=== PATIENT | female | born 1950 | race Caucasian/White ===

== ENCOUNTER 2016-10-21 12:57 | Inpatient (IN) | payer MEDICARE, MEDICAID ==
[~2016-10-21] VITALS: Ht 160 cm; Wt 72.8 kg
[2016-10-21 14:21] LABS: Hematocrit 45.1 % (36.0-46.0); Hemoglobin 15.6 g/dL (12.2-16.2); Mean Corpuscular Hemoglobin 29.2 pg (28.0-32.0); Mean Corpuscular Hgb Conc. 34.7 g/dL (32.0-36.0); Mean Corpuscular Volume 84.2 fL (80.0-100.0); Mean Platelet Volume 10.1 fL (7.4-10.4); Platelet Count (auto) 175 10^3/uL (140-450); Red Cell Distribution Width 13.9 % (11.6-16.0); SUSPECT VIEW TRANSMISSION; White Blood Cell 19.2 10^3/uL (4.4-10.8)
[2016-10-21 14:33] LABS: Metamyelocytes % 0; Myelocytes % 0; Promyelocytes % 0; Reactive Lymphocytes 0
[2016-10-21 14:54] LABS: Platelet Estimate Adequate
[2016-10-21 14:59] LABS: Albumin 3.5 g/dL (3.4-5.0); Alkaline Phosphatase 76 U/L (45-117); Anion Gap 16 (5-15); Aspartate Aminotransferase 28 U/L (15-37); BUN/Creatinine Ratio 19.4; Bilirubin, Total 1.8 mg/dL (0.2-1.0); Blood Urea Nitrogen 18 mg/dL (7-18); Calcium 9.3 mg/dL (8.5-10.1); Carbon Dioxide 25 mmol/L (21-32); Chloride 101 mmol/L (98-107); GFR African American 78 mL/min; GFR Non-African American 64 mL/min; Glucose 172 mg/dL (74-106); Sodium 142 mmol/L (136-145); Total Protein 8.2 g/dL (6.4-8.2)
[2016-10-21 15:02] LABS: Potassium 2.8 mmol/L (3.5-5.1)
[2016-10-21] MEDS ORDERED: POTASSIUM CHL 20 Meq TABLET PO ONE (16:00)
[2016-10-21] MEDS ORDERED: POTASSIUM CHL 20MEQ/100ML 100 ML IV ONE (16:00)
[2016-10-21] MEDS ORDERED: cefTRIAXone 1GM/50ML D5W 50 ML IV ONE (17:15)
[2016-10-21] MEDS ORDERED: ACETAMINOPHEN 500 MG TAB PO PRN (17:15)
[2016-10-21] MEDS: SODIUM CHLORIDE 0.9% 1,000 ML IV SCH (17:15)
[2016-10-21] MEDS ORDERED: AZITHROMYCIN 500MG/D5W 250ML 250 ML IV ONE (18:15)
[2016-10-21 21:58] VITALS: BP 141/83
[2016-10-22] VITALS (7 sets, daily range): BP systolic 113–146; BP diastolic 73–91
[2016-10-22 06:06] LABS: Hematocrit 43.1 % (36.0-46.0); Hemoglobin 14.9 g/dL (12.2-16.2); Mean Corpuscular Hgb Conc. 34.6 g/dL (32.0-36.0); Mean Corpuscular Volume 83.9 fL (80.0-100.0); Platelet Count (auto) 151 10^3/uL (140-450); Red Cell Distribution Width 13.5 % (11.6-16.0); SUSPECT VIEW TRANSMISSION; White Blood Cell 18.6 10^3/uL (4.4-10.8)
[2016-10-22 06:22] LABS: Metamyelocytes % 0; Myelocytes % 0; Promyelocytes % 0; Reactive Lymphocytes 0
[2016-10-22] MEDS: SODIUM CHLORIDE 0.9% 1,000 ML IV SCH ×2 (06:35→19:55)
[2016-10-22 06:49] LABS: BUN/Creatinine Ratio 20.5; Calcium 8.9 mg/dL (8.5-10.1); Magnesium 2.4 mg/dL (1.6-2.6)
[2016-10-22 06:52] LABS: Hypersegmented Neutrophils Present; Platelet Estimate Adequate; RBC Morphology Normal
[2016-10-22] MEDS: cefTRIAXone 1GM/50ML D5W 50 ML IV SCH (08:51)
[2016-10-22] MEDS ORDERED: POTASSIUM CHL 20 Meq TABLET PO ONE (09:45)
[2016-10-22] MEDS ORDERED: DEXTROSE (50%) 50ML SYRG IV PRN (09:45)
[2016-10-22] MEDS ORDERED: AZITHROMYCIN 500MG/D5W 250ML 250 ML IV SCH (10:00)
[2016-10-22] MEDS ORDERED: POTASSIUM CHL 10% (20 MEQ/15ML) ORAL SOLN PO ONE (11:15)
[2016-10-22] MEDS: ACCU-CHEK COMFORT CURVE STRIP VI SCH ×3 (11:42→22:00)
[2016-10-22 11:47] LABS: Urine Bilirubin Negative (Negative); Urine Color Yellow (Yellow); Urine Glucose Normal (Normal); Urine Ketone Negative (Negative); Urine Mucus FEW (None Seen); Urine Nitrite Negative (Negative); Urine RBC 152 /hpf (0 - 4); Urine Urobilinogen Normal (Negative); Urine pH 5.5 (5.0-8.0)
[2016-10-22 11:52] LABS: Urine Blood 3+ /uL (Negative)
[2016-10-22] MEDS: InsuLIN REG 1unit/0.01ml Soln (100units/ml) SC SCH ×3 (11:57→22:00)
[2016-10-22] MEDS ORDERED: MEMA1CAP2 PO (19:53)
[2016-10-22] MEDS ORDERED: HYDR25TA4 PO (19:53)
[2016-10-22] MEDS ORDERED: CLON2TAB3 PO (19:53)
[2016-10-22] MEDS ORDERED: QUET50TA PO (19:53)
[2016-10-23 05:01] VITALS: BP 115/74
[2016-10-23 05:34] LABS: Basophils # (auto) 0.1 uL; Basophils % (auto) 0.5 % (0.0-2.0); Eosinophils # (auto) 0 uL; Eosinophils % (auto) 0.1 % (0.0-7.0); Lymphocytes # (auto) 1.5 uL; Lymphocytes % (auto) 10.1 % (10.0-50.0); Mean Corpuscular Hemoglobin 28.9 pg (28.0-32.0); Mean Corpuscular Hgb Conc. 34.2 g/dL (32.0-36.0); Mean Corpuscular Volume 84.5 fL (80.0-100.0); Mean Platelet Volume 10.8 fL (7.4-10.4); Monocytes # (auto) 1.3 uL; Monocytes % (auto) 8.9 % (0.0-12.0); Neutrophils # (auto) 11.8 uL; Neutrophils % (auto) 80.4 % (37.0-80.0); Platelet Count (auto) 160 10^3/uL (140-450); Red Cell Distribution Width 13.9 % (11.6-16.0); White Blood Cell 14.7 10^3/uL (4.4-10.8)
[2016-10-23] MEDS: InsuLIN REG 1unit/0.01ml Soln (100units/ml) SC SCH (05:46)
[2016-10-23] MEDS: ACCU-CHEK COMFORT CURVE STRIP VI SCH (05:47)
[2016-10-23 05:48] LABS: BUN/Creatinine Ratio 22.1; Calcium 8.3 mg/dL (8.5-10.1); Potassium 3.1 mmol/L (3.5-5.1)
[2016-10-23 07:40] VITALS: BP 121/76
[2016-10-23 09:00] VITALS: BP 121/76
[2016-10-23] MEDS: cefTRIAXone 1GM/50ML D5W 50 ML IV SCH (09:34)
[2016-10-23] MEDS ORDERED: POTASSIUM CHL 20 Meq TABLET PO ONE (10:00)
[2016-10-23 13:00] VITALS: BP 113/74
[2016-10-23] MEDS ORDERED: ONDANSETRON HCL 4 MG/2 ML VIAL IV PRN (13:00)
[2016-10-23 17:00] VITALS: BP_SYST 119; BP_SYST 154; BP_DIAS 70; BP_DIAS 95
[2016-10-23] MEDS: QUEtiapine FUMARATE 25 MG TAB PO SCH (21:29)
[2016-10-23 21:42] VITALS: BP 143/81
[2016-10-24 04:46] VITALS: BP 147/92
[2016-10-24 05:59] LABS: Basophils # (auto) 0 uL; Basophils % (auto) 0.4 % (0.0-2.0); Eosinophils # (auto) 0.1 uL; Eosinophils % (auto) 0.6 % (0.0-7.0); Hematocrit 39.3 % (36.0-46.0); Hemoglobin 13.4 g/dL (12.2-16.2); Lymphocytes # (auto) 1.2 uL; Lymphocytes % (auto) 13.5 % (10.0-50.0); Mean Corpuscular Hemoglobin 28.9 pg (28.0-32.0); Mean Platelet Volume 10.4 fL (7.4-10.4); Neutrophils # (auto) 6.7 uL; Neutrophils % (auto) 74.5 % (37.0-80.0); Platelet Count (auto) 146 10^3/uL (140-450); Red Cell Distribution Width 13.8 % (11.6-16.0); White Blood Cell 9.1 10^3/uL (4.4-10.8)
[2016-10-24 06:18] LABS: Calcium 8.2 mg/dL (8.5-10.1); Potassium 3.3 mmol/L (3.5-5.1)
[2016-10-24 06:20] LABS: BUN/Creatinine Ratio 17.3
[2016-10-24 08:00] VITALS: BP 143/88
[2016-10-24 09:00] VITALS: BP 143/88
[2016-10-24] MEDS ORDERED: POTASSIUM CHL 20 Meq TABLET PO ONE (09:00)
[2016-10-24] MEDS: MEMANTINE HCL 5 MG TAB PO SCH (10:23)
[2016-10-24] MEDS: cefTRIAXone 1GM/50ML D5W 50 ML IV SCH (10:24)
[2016-10-24 13:00] VITALS: BP 141/83
[2016-10-24 17:00] VITALS: BP 132/78
[2016-10-24 22:00] VITALS: BP 143/92
[2016-10-24] MEDS: QUEtiapine FUMARATE 25 MG TAB PO SCH (22:20)
[2016-10-25 04:49] VITALS: BP 144/72
[2016-10-25 06:02] LABS: Basophils # (auto) 0.1 uL; Basophils % (auto) 0.6 % (0.0-2.0); Eosinophils # (auto) 0.1 uL; Hematocrit 39.2 % (36.0-46.0); Hemoglobin 13.2 g/dL (12.2-16.2); Lymphocytes # (auto) 1.7 uL; Lymphocytes % (auto) 19.2 % (10.0-50.0); Mean Corpuscular Hemoglobin 28.5 pg (28.0-32.0); Mean Corpuscular Hgb Conc. 33.8 g/dL (32.0-36.0); Mean Corpuscular Volume 84.5 fL (80.0-100.0); Mean Platelet Volume 9.9 fL (7.4-10.4); Monocytes # (auto) 1.2 uL; Neutrophils # (auto) 5.9 uL; Neutrophils % (auto) 66.2 % (37.0-80.0); Platelet Count (auto) 170 10^3/uL (140-450); Red Cell Distribution Width 13.9 % (11.6-16.0); White Blood Cell 8.9 10^3/uL (4.4-10.8)
[2016-10-25 06:20] LABS: BUN/Creatinine Ratio 16.7; Calcium 8.2 mg/dL (8.5-10.1); Potassium 3.5 mmol/L (3.5-5.1)
[2016-10-25 08:00] VITALS: BP 114/82
[2016-10-25] MEDS: MEMANTINE HCL 5 MG TAB PO SCH (09:16)
[2016-10-25] MEDS: cefTRIAXone 1GM/50ML D5W 50 ML IV SCH (09:16)
[2016-10-25 12:00] VITALS: BP 132/77
== END 2016-10-25 12:10 | disposition home or self-care (01) | DRG 871 ==
LOC: ER 12:57 → EDBD 12:57 → EDSEX 12:57 → OVERFLOW 12:58 → CENTRAL 18:46
PROVIDERS: ADMIT Internal Medicine; ATTEND Family Medicine
DX: A41.9 Sepsis, unspecified organism (principal); J18.9 Pneumonia, unspecified organism; N39.0 Urinary tract infection, site not specified; E87.6 Hypokalemia; F02.80 Dementia in other diseases classified elsewhere, unspecified severity, without behavioral disturbance, psychotic disturbance, mood disturbance, and anxiety; G30.9 Alzheimer's disease, unspecified; G40.909 Epilepsy, unspecified, not intractable, without status epilepticus; I10 Essential (primary) hypertension; F32.9 Major depressive disorder, single episode, unspecified; M19.90 Unspecified osteoarthritis, unspecified site; Z90.710 Acquired absence of both cervix and uterus; Z79.899 Other long term (current) drug therapy; Z88.5 Allergy status to narcotic agent
CPT/HCPCS: 36415; 70450; 71010; 71020; 80048; 80053; 81001; 82962; 83036; 83735; 84484; 85007; 85025; 85027; 85379; 87040; 87077; 87081; 87086; 87186; 94761; 96374; J0696; J1815; J2405; J3480

== ENCOUNTER 2019-05-29 08:19 | Inpatient (IN) | payer MEDICARE, MEDICAID ==
[~2019-05-29] VITALS: Ht 162.6 cm; Wt 75.5 kg
[~2019-05-29 08:19] MED LIST: CLON-707 PO; HYDR25TA4 PO; MEMA1CAP2 PO; QUET50TA PO
[2019-05-29 09:13] LABS: Basophils # (auto) 0.1 uL; Basophils % (auto) 0.4 % (0.0-2.0); Eosinophils # (auto) 0 uL; Hematocrit 44.7 % (36.0-46.0); Hemoglobin 15.4 g/dL (12.2-16.2); Lymphocytes # (auto) 1.1 uL; Lymphocytes % (auto) 6.3 % (10.0-50.0); Mean Corpuscular Hgb Conc. 34.4 g/dL (32.0-36.0); Mean Corpuscular Volume 84.2 fL (80.0-100.0); Monocytes # (auto) 1.6 uL; Neutrophils # (auto) 15.1 uL; Neutrophils % (auto) 84.3 % (37.0-80.0); Nucleated Red Blood Cells % 0.1 %; Platelet Count (auto) 153 10^3/uL (140-450); Red Cell Distribution Width 14.3 % (11.8-14.3); White Blood Cell 17.9 10^3/uL (4.4-10.8)
[2019-05-29 09:41] LABS: Alanine Aminotransferase 36 U/L (13-56); Albumin 3.5 g/dL (3.4-5.0); Alkaline Phosphatase 61 U/L (45-117); Anion Gap 7 (5-15); Aspartate Aminotransferase 21 U/L (15-37); BUN/Creatinine Ratio 20.6; Bilirubin, Total 1.1 mg/dL (0.2-1.0); Blood Urea Nitrogen 21 mg/dL (7-18); Calcium 9.2 mg/dL (8.5-10.1); Carbon Dioxide 28 mmol/L (21-32); Chloride 108 mmol/L (98-107); GFR African American 70 mL/min; GFR Non-African American 57 mL/min; Glucose 211 mg/dL (74-106); Sodium 143 mmol/L (136-145); Total Protein 7.8 g/dL (6.4-8.2)
[2019-05-29] MEDS ORDERED: IPRATROPIUM BROM 0.5 MG/2.5ML INH SOL NEB ONE (09:45)
[2019-05-29] MEDS ORDERED: ALBUTEROL SULF 2.5 MG/0.5ML(0.5%) NEB SOLN NEB ONE (09:45)
[2019-05-29] MEDS ORDERED: PIPERACILLIN-TAZOB 3.375GM 100 ML IV ONE (09:45)
[2019-05-29] MEDS ORDERED: SODIUM CHLORIDE 0.9% 2,000 ML IV ONE (09:45)
[2019-05-29] MEDS ORDERED: POTASSIUM EFFERVESENT TAB 25 MEQ PO ONE (10:00)
[2019-05-29 10:09] LABS: Urine Bacteria MANY /hpf (None Seen); Urine Blood 2+ /uL (Negative); Urine Budding Yeast OCCASIONAL /hpf (None Seen); Urine Mucus FEW (None Seen); Urine Specific Gravity 1.018 (1.001-1.035); Urine WBC 407 /hpf (0 - 5); Urine WBC Clumps PRESENT /hpf (None Seen)
[2019-05-29] MEDS ORDERED: ALBUTEROL SULF 2.5 MG/0.5ML(0.5%) NEB SOLN NEB PRN (11:30)
[2019-05-29] MEDS ORDERED: NITROGLYCERIN 0.4 MG SL TAB SL PRN (11:30)
[2019-05-29] MEDS ORDERED: MORPHINE SULF INJ 2 MG/ML SYRINGE 1ML IV PRN ×2 (11:30)
[2019-05-29] MEDS ORDERED: IPRATROPIUM BROM 0.5 MG/2.5ML INH SOL NEB PRN (11:30)
[2019-05-29] MEDS ORDERED: HYDROcodone-ACET 5/325MG TAB PO PRN (11:30)
[2019-05-29] MEDS ORDERED: clonazePAM 0.5 MG TAB PO PRN (12:15)
[2019-05-29 12:16] VITALS: BP 111/69
--- NOTE | 2019-05-29 12:35 | NUR ---
Respiratory note: PT IS AWAKE, ALERT AND RESPONSIVE. FOUND PT ON 2 LPM NC. B/S WERE COARSE AND EXPIRATORY WHEEZE. HR 110, RR 20, SP02 96%. PT RECEIVED INITIAL ONE TIME TREATMENT IN ER AND BS IMPROVED AND PT FELT RELIEF. PT IS IN NO DISTRESS ATHIS TIME AND NO COMPLAINT OF SOB. EXPLAINED TO PT IF BECOMES SOB TO PUSH CALL LIGHT AND RT WILL BE PAGED.
[2019-05-29] MEDS: ACETAMINOPHEN 500 MG TAB PO PRN (12:46)
[2019-05-29 13:00] VITALS: BP 93/48
--- NOTE | 2019-05-29 13:00 | NUR ---
[facility] after SBAR received. Patient oriented to Kelli Cardozo, RN primary RN, unit, room, bed, and unit policies regarding patient care and visiting hours. Patient now on continuous telemetry monitoring, tele box # [id number] and telemetry reading on arrival to unit is sinus tach 110. Patient placed on bedside oxygen, weighed by bedscale and encouraged to call if they need something. All questions and concerns addressed, patient verbalized understanding. Note:
[2019-05-29 13:23] LABS: Cholesterol 140 mg/dL (< 200); LDL Cholesterol 80 mg/dL (< 100); Triglycerides 110 mg/dL (< 150)
[2019-05-29 13:26] LABS: HDL Cholesterol 51 mg/dL (40-59)
[2019-05-29] MEDS ORDERED: AMLO5TAB15 PO (14:52)
[2019-05-29] MEDS ORDERED: CYAN1TAB14 PO (14:52)
[2019-05-29] MEDS ORDERED: MELA3TAB27 PO (14:52)
[2019-05-29] MEDS ORDERED: FENO1TAB42 PO (14:52)
[2019-05-29] MEDS ORDERED: MULTCAP45 PO (14:52)
[2019-05-29] MEDS: SODIUM CHLORIDE 0.9% 1,000 ML IV SCH ×2 (14:54→19:20)
[2019-05-29] MEDS: cefTRIAXone 1GM/50ML D5W 50 ML IV SCH (14:54)
[2019-05-29 16:43] VITALS: BP 95/53
--- NOTE | 2019-05-29 18:00 | NUR ---
Patient asking to be helped to the bathroom. Patient is unsteady on her feet. BSC at bedside for patient safety. Call light in reach. Will continue to monitor.
[2019-05-29] MEDS: QUEtiapine FUMARATE 25 MG TAB PO SCH (18:40)
--- NOTE | 2019-05-29 19:30 | NUR ---
Opening Shift Note Assumed care of patient. Patient is awake, alert and oriented. No S/S of distress/SOB or pain. Mims catheter intact, patent, draining to gravity with no s/s of pain or discomfort. Bedside commode in place and bed alarm on. Patient Instructed on POC and to call for assist PRN, will continue to monitor for changes. Bed locked in lowest position and bed rails up x2. Call light within reach.
--- NOTE | 2019-05-29 20:30 | NUR ---
Respiratory note: PT ASSESSED FOR PRN MED NEB TX. HR 89, RR 16, SPO2 90% ON R/A. NO SIGNS OF ANY RESPIRATORY DISTRESS NOTED. ADVISED PT TO CALL IF TX IS NEEDED. RT NSME AND PAGER NUMBER WRITTEN ON BOARD.
[2019-05-29 22:00] VITALS: BP 100/64
--- NOTE | 2019-05-29 22:00 | NUR ---
Patient found on room air and O2 saturation at 90%. Assessed patient. Patient has no s/s of respiratory distress. Applied O2 at 3lpm. O2 saturation petar to 92%. Patient answered "yes" when asked if she use to be a previous smoker. Addendum: 05/29/19 at 2237 by TAMIKA SAINZ RN RN Will continue to monitor patient for any changes
--- NOTE | 2019-05-30 01:10 | NUR ---
Patient removed tele monitor and leads. Patient stated "I took it off because Im leaving in the morning anyway". Educated patient on risks of not having it on and benefits to keeping it on. Patient verbalized understanding and agreed to reapply the leads and tele monitor.
[2019-05-30] MEDS: SODIUM CHLORIDE 0.9% 1,000 ML IV SCH ×3 (02:54→19:20)
[2019-05-30 05:09] VITALS: BP 106/68
--- NOTE | 2019-05-30 05:10 | NUR ---
Paged hospitalist for positive blood culture
--- NOTE | 2019-05-30 05:22 | NUR ---
Hospitalist called back. Notified him of the positive results for the blood culture. Instructed to wait on the final report before any action could be taken. No new orders given. Will continue to monitor patient for changes
[2019-05-30 05:59] LABS: Basophils # (auto) 0.1 uL; Basophils % (auto) 0.5 % (0.0-2.0); Eosinophils # (auto) 0.1 uL; Eosinophils % (auto) 0.8 % (0.0-7.0); Hematocrit 37.6 % (36.0-46.0); Hemoglobin 12.9 g/dL (12.2-16.2); Lymphocytes # (auto) 1.9 uL; Lymphocytes % (auto) 17.3 % (10.0-50.0); Mean Corpuscular Hemoglobin 29.2 pg (28.0-32.0); Mean Corpuscular Hgb Conc. 34.4 g/dL (32.0-36.0); Monocytes # (auto) 1.2 uL; Monocytes % (auto) 11.3 % (0.0-12.0); Neutrophils # (auto) 7.5 uL; Neutrophils % (auto) 70.1 % (37.0-80.0); Nucleated Red Blood Cells % 0.1 %; Platelet Count (auto) 127 10^3/uL (140-450); Red Blood Cells 4.42 10^6/uL (4.0-5.20); Red Cell Distribution Width 14.4 % (11.8-14.3); White Blood Cell 10.8 10^3/uL (4.4-10.8)
[2019-05-30 06:36] LABS: Potassium 3.4 mmol/L (3.5-5.1)
[2019-05-30 06:45] LABS: BUN/Creatinine Ratio 18.8; Calcium 8.3 mg/dL (8.5-10.1)
--- NOTE | 2019-05-30 07:30 | NUR ---
Opening Shift Note Assumed care of patient, awake and alert. No S/S of distress/SOB or pain. Instructed on POC and to call for assist PRN, will continue to monitor for changes Q1hr and PRN.
[2019-05-30 09:00] VITALS: BP 106/64
--- NOTE | 2019-05-30 09:37 | NUR ---
Respiratory note: PT ASSESSED FOR PRN MED NEB TX, NO TX DESIRED NOR INDICATED AT THIS TIME. PT DENIES SOB OR DIFF BREATHING, NO DISTRESS NOTED. HR 85 RR 18 SPO2 90% ON RA. PT AND RN AWARE TO HAVE RT PAGED IF NEEDED.
[2019-05-30] MEDS: FAMOTIDINE 20 MG TAB PO SCH (09:48)
[2019-05-30] MEDS: cefTRIAXone 1GM/50ML D5W 50 ML IV SCH (09:48)
--- NOTE | 2019-05-30 10:00 | NUR ---
Dr. Poncho Vizcaino informed of positive blood and urine cultures.
[2019-05-30 12:45] VITALS: BP 125/75
[2019-05-30 17:00] VITALS: BP 131/80
[2019-05-30] MEDS: QUEtiapine FUMARATE 25 MG TAB PO SCH (17:36)
--- NOTE | 2019-05-30 19:30 | NUR ---
Opening Shift Note Assumed care of patient. Patient is awake and alert. No S/S of distress/SOB or pain. Mims catheter intact, patent and draining to gravity. Instructed on POC and to call for assist PRN, will continue to monitor for changes. Bed locked in lowest position and bed rails up x2. Call light within reach.
--- NOTE | 2019-05-30 20:00 | NUR ---
Respiratory note: PT ASSESSED FOR PRN MED NEB TX. HR 93, RR 16, SPO2 93% ON RA. NO SIGNS OF ANY RESPIRATORY DISTRESS NOTED. ADVISED PT TO CALL IS TX IS NEEDED. RT NAME AND PAGER NUMBER WRITTEN ON PT'S BOARD.
--- NOTE | 2019-05-30 20:30 | NUR ---
Patient states that she feels nauseous. Nausea medication and crackers given. Will continue to monitor for changes
[2019-05-30] MEDS: ONDANSETRON HCL 4 MG/2 ML VIAL IV PRN (20:31)
[2019-05-30 22:00] VITALS: BP 105/65
[2019-05-31] MEDS: SODIUM CHLORIDE 0.9% 1,000 ML IV SCH ×2 (03:32→11:31)
[2019-05-31 05:19] VITALS: BP 105/67
[2019-05-31 09:00] VITALS: BP 112/70
--- NOTE | 2019-05-31 09:20 | NUR ---
Respiratory note: ASSESSED PT FOR PRN MEDNEB TX. HR 87, RR 14, POX 96% ON 3L NC. BREATH SOUNDS DIMINISHED THROUGHOUT. NO S/S OF RESPIRATORY DISTRESS. MEDNEB TX NOT INDICATED AT THIS TIME. ADVISED PT TO CALL FOR RT IF FEELING SOB OR NEEDS BREATHING TX.
[2019-05-31] MEDS: FAMOTIDINE 20 MG TAB PO SCH (09:42)
[2019-05-31] MEDS: cefTRIAXone 1GM/50ML D5W 50 ML IV SCH (09:42)
--- NOTE | 2019-05-31 10:30 | NUR ---
Dr. Vizcaino at the bedside, patient is advised. Orders received. Made him aware that patient's heart rate was noted earlier on 130's-140's. Patient is asymptomatic. Per Dr. Vizcaino continue to monitor patient.
[2019-05-31 13:00] VITALS: BP 118/70
--- NOTE | 2019-05-31 14:11 | NUR ---
Assessment and SS Consult Pt is a 68 yr old alert and oriented female. SW consult for living situation. Pt stated that she lives with her daughter Ivett who is her caregiver and that she feels safe living with her and receives adequate help in the home. Pt stated that Ivett's phone # is in her chart. Pt is ambulatory and uses a shower chair and commode to assist with ADL's. Pt's daughter assists with cooking, cleaning and transporting. Pt stated that she was admitted with and getting tx for UTI. Pt receives income and family supports. Pt is not interested in AD currently. Pt's daughter will transport the pt home upon d/c. Pt to d/c home upon medical clearance. No needs or concerns currently. Addendum: 05/31/19 at 1420 by MAXIMINO ANTONIO Amended: Links added.
[2019-05-31 17:00] VITALS: BP 124/72
[2019-05-31] MEDS: QUEtiapine FUMARATE 25 MG TAB PO SCH (17:19)
--- NOTE | 2019-05-31 17:24 | NUR ---
Patient's daughter Ivett at the bedside, informed the RN that if there will be a discharge planning in the coming days, she and the patient wanted her back to the previous board and care and they will facilitate the transport.
--- NOTE | 2019-05-31 19:30 | NUR ---
Opening Shift Assumed care of patient, awake and alert. No S/S of distress/SOB or pain. Insructed on POC and to callfor assist PRN, will continue to monitor for changes Q1hr and PRN. Fall and safety precautions in place. Call light within reach.
[2019-05-31 22:00] VITALS: BP 115/71
--- NOTE | 2019-06-01 00:30 | NUR ---
Respiratory note: PT SEEN AND ASSESSED FOR PRN MED NEB TX AT 0030. TX NOT INDICATED AT THIS TIME. PT DISPLAYING NO SIGNS OF RESPIRATORY DISTRESS, SHE STATED HER BREATHING FELT FINE. HR 91 RR 20 POX 96% ON 3L NASAL CANNULA.
[2019-06-01] MEDS: SODIUM CHLORIDE 0.9% 1,000 ML IV SCH ×2 (01:41→03:22)
[2019-06-01] MEDS: ACETAMINOPHEN 500 MG TAB PO PRN (01:42)
[2019-06-01] MEDS: ONDANSETRON HCL 4 MG/2 ML VIAL IV PRN (01:46)
[2019-06-01 05:00] VITALS: BP 115/76
--- NOTE | 2019-06-01 08:00 | NUR ---
OPENING NOTE ASSUMED CARE OF PATIENT AWAKE AND ALERT. NO S/S OF DISTRESS NOTED OR COMPLAINTS OF PAIN. PT UPDATED ON POC AND ALL QUESTIONS ANSWERED. BED IS IN LOWEST, LOCKED POSITION WITH SIDE RAILS UP X2 AND CALL LIGHT WITHIN REACH. WILL CONTINUE TO MONITOR Q1H AND PRN.
[2019-06-01 09:00] VITALS: BP 121/71
--- NOTE | 2019-06-01 09:08 | NUR ---
FAMILY RECEIVED PHONE CALL FROM PATIENTS KIMBERLY DESOUZA. KIMBERLY REQUESTING UPDATED POC AND INQUIRING TO WHETHER OR NOT PT HAS BEEN DISCHARGED. NO PASSWORD ESTABLISHED. SPOKE TO PATIENT. OK WITH KIMBERLY RECEIVING INFORMATION OVER THE PHONE. PASSWORD 'MARIANELA' ESTABLISHED. KIMBERLY UPDATED ON POC AND VERBALIZED UNDERSTANDING. REQUESTING TO BE NOTIFIED WHEN PATIENT IS DISCHARGED. WILL CARRY OUT. PHONE NUMBER: [phone].
[2019-06-01] MEDS: FAMOTIDINE 20 MG TAB PO SCH (09:30)
[2019-06-01] MEDS: cefTRIAXone 1GM/50ML D5W 50 ML IV SCH (09:30)
--- NOTE | 2019-06-01 10:13 | NUR ---
AT BEDSIDE DR. SAMAYOA AT BEDSIDE DISCUSSING POC/DC PLANS WITH PATIENT. PATIENT TO BE DC'D HOME TODAY. FAMILY TO TRANSPORT. SPOKE TO MD REGARDING DC OF SINHA. OK TO DC SINHA. WILL CARRY OUT.
--- NOTE | 2019-06-01 10:44 | NUR ---
Lemus catheter dc'd Order to discontinue lemus catheter. Lemus dc'd with clean technique following deflation of balloon. Patient tolerated well with no complaints of pain. Continue care.
--- NOTE | 2019-06-01 12:00 | NUR ---
POST VOID PATIENT ABLE TO VOID SPONTANEOUSLY WITHOUT DIFFICULTY.
--- NOTE | 2019-06-01 13:36 | NUR ---
Discharge instructions given as ordered. Patients Luis christine present for DC instructions. Encourage to follow up with PMD as instructed. All questions and concerns addressed. Patient verbalized understanding. Medication reconciliation form completed and copy given to patient. IV removed with catheter intact, pressure dressing applied, lemus catheter removed. Telemetry unit returned to ICU. Patient taken to vehicle via wheelchair with all personal belongings, accompanied by staff and family member. No distress noted at time of departure.
== END 2019-06-01 13:30 | disposition home or self-care (01) | DRG 872 ==
LOC: EDBD 08:19 → ER 08:24 → TELE 08:25 → TELE-WESTW 13:09
PROVIDERS: ADMIT Nurse Practitioner Acute Care; ATTEND Family Medicine
DX: A41.51 Sepsis due to Escherichia coli [E. coli] (principal); N39.0 Urinary tract infection, site not specified; E87.6 Hypokalemia; I10 Essential (primary) hypertension; E78.5 Hyperlipidemia, unspecified; F41.9 Anxiety disorder, unspecified; E86.0 Dehydration; F02.80 Dementia in other diseases classified elsewhere, unspecified severity, without behavioral disturbance, psychotic disturbance, mood disturbance, and anxiety; G30.9 Alzheimer's disease, unspecified; Z79.899 Other long term (current) drug therapy; Z87.820 Personal history of traumatic brain injury; Z90.710 Acquired absence of both cervix and uterus; F32.9 Major depressive disorder, single episode, unspecified; M19.90 Unspecified osteoarthritis, unspecified site; R73.9 Hyperglycemia, unspecified; E78.00 Pure hypercholesterolemia, unspecified; B96.20 Unspecified Escherichia coli [E. coli] as the cause of diseases classified elsewhere; Z88.5 Allergy status to narcotic agent
CPT/HCPCS: 36415; 51702; 71045; 80048; 80053; 80061; 81001; 83036; 83605; 84443; 84484; 85025; 87040; 87077; 87086; 87088; 87186; 93005; 93970; 94640; 94761; 96365; G0378; J0696; J2405; J2543